=== PATIENT | female | born 1990 | race American Indian/Alaskan Native ===

== ENCOUNTER 2016-07-08 04:03 | Emergency (ER) | payer SELFPAY ==
[2016-07-08 04:10] VITALS: BP 143/83
[2016-07-08] MEDS ORDERED: PEPCID IV ONE (04:22)
[2016-07-08] MEDS ORDERED: BENADRYL IV ONE (04:24)
--- NOTE | 2016-07-08 05:23 | Emergency Department Report ---
HPI - General Chief Complaint: Allergic Reaction Time Seen by Provider: 07/08/16 05:18 - HPI HPI: 26-year-old -[place] Citizen female comes in for complaint of eating [place] food and started to have a rash and itching. Patient reports that she had shrimp fried rice brownie and supreme pizza slice from her mother and within 30 minutes she was itching. Denies any nausea no vomiting no fever or chills. Patient denies any past medical history currently takes no medication and has no known drug allergies. ED Past Medical Hx - Past Medical History Previous Medical History?: No - Surgical History Past Surgical History?: No - Social History Smoking Status: Current Every Day Smoker Substance Use Type: None - Medications Home Medications: Home Medications Medication Instructions Recorded Confirmed Last Taken Type Cetirizine HCl [ZyrTEC] 10 mg PO QDAY #30 capsule 07/08/16 Unknown Rx Famotidine [Pepcid] 20 mg PO BID #20 tablet 07/08/16 Unknown Rx ED Review of Systems ROS: Stated complaint: ALLERGIC REACTION Other details as noted in HPI Constitutional: denies: chills, fever Eyes: denies: eye pain, eye discharge, vision change ENT: denies: ear pain, throat pain Endocrine: no symptoms reported Gastrointestinal: denies: abdominal pain, nausea, diarrhea Musculoskeletal: denies: back pain, joint swelling, arthralgia Skin: pruritus Psychiatric: denies: anxiety, depression Hematological/Lymphatic: denies: easy bleeding, easy bruising Physical Exam - Physical Exam Vital Signs: Vital Signs 07/08/16 04:05 Temperature 98.1 F Pulse Rate 97 H Respiratory 22 Rate Blood Pressure 143/83 O2 Sat by Pulse 99 Oximetry Physical Exam: GENERAL: Alert and oriented x3, no apparent distress, Normal Gait, atraumatic. HEAD: Head is normocephalic and a-traumatic. EYES: Extra ocular muscles are intact. Pupils are equal, round, and reactive to light and accommodation. EARS: symetrical, atraumatic, non tender, ear canal clear and moderate cerumen, tympanic membrance non inflamed. gross auditory nml bilaterally. NOSE: Nose symetrical, Nontender,Nares appeared normal. MOUTH:Mouth is well hydrated and without lesions. Tonsils nonerythematous or swollen, Uvula midline, Tongue not elevated. Mucous membranes are moist. Posterior pharynx clear, no exudate or lesions. Patent airways. NECK: Supple. Non edematous, No carotid bruits. No lymphadenopathy or thyromegaly. LUNGS: Symetrical with respiration, No wheezing, no rales or crackles, CTAB. HEART: S1, S2 present, regular rate and rhythm without murmur, no rubs, no gallops. EXTREMITIES/MUSCULOSKELETAL: No cyanosis, clubbing, rash, lesions or edema. Full ROM bilaterally. UE/LE Pulses 2+ bilaterally. LE and UE 5+ strength bilaterally NEUROLOGIC: No focal Deficit, Cranial nerves II through XII are grossly intact. No loss of sensation, No facial droop, Negative rhomberg. PSYCHIATRIC: Mood is congruent with affect, denies suicidal or homicidal ideations. SKIN: Warm and dry, No lesions, No ulceration or induration present no rashes present ED Course Vital Signs 07/08/16 04:05 Temperature 98.1 F Pulse Rate 97 H Respiratory 22 Rate Blood Pressure 143/83 O2 Sat by Pulse 99 Oximetry ED Medical Decision Making - Medical Decision Making Patient has been evaluated by this provider in fast track. tHis provider gave orders to triage for Pepcid 40 mg IV surgeon Medrol 125 mg and Benadryl 50 mg. Patient reports that she is feeling much better she denies any itchiness no rash no nausea no vomiting. Critical care attestation.: If time is entered above; I have spent that time in minutes in the direct care of this critically ill patient, excluding procedure time. ED Disposition Clinical Impression: Allergic reaction Qualifiers: Encounter type: initial encounter Qualified Code(s): T78.40XA - Allergy, unspecified, initial encounter Disposition: DISCHARGED TO HOME OR SELFCARE Is pt being admited?: No Does the pt Need Aspirin: No Condition: Stable Instructions: Food Allergy (ED) Additional Instructions: Please take medication as prescribed. Follow up with her primary care provider within 3-5 days. Or if symptoms persist or gets worse follow-up with emergency room. Prescriptions: Cetirizine HCl [ZyrTEC] 10 mg PO QDAY #30 capsule Famotidine [Pepcid] 20 mg PO BID #20 tablet Referrals: PRIMARY CARE, [Primary Care Provider] - 3-5 Days Forms: Work/School Release Form(ED), Accompanied Note
== END 2016-07-08 05:41 | disposition home or self-care (01) ==
LOC: ED 04:03
DX: T78.40XA Allergy, unspecified, initial encounter (principal); X58.XXXA Exposure to other specified factors, initial encounter
CPT/HCPCS: 96374; 96375; 99282; J1200; J2930

== ENCOUNTER 2016-07-14 00:14 | Emergency (ER) | payer SELFPAY ==
[2016-07-14] MEDS ORDERED: TYLENOL ONE (00:25)
[2016-07-14] MEDS ORDERED: TYLENOL PO ONE (00:40)
[2016-07-14 01:34] LABS: Basophils % (Auto) 0.4 % (0.0-1.8); Eosinophils % (Auto) 1.9 % (0.0-4.3); Hematocrit 39.2 % (30.3-42.9); Hemoglobin 13.1 gm/dl (10.1-14.3); Mean Corpuscular HGB Conc 33 % (30-34); Mean Corpuscular Hemoglobin 29 pg (28-32); Mean Corpuscular Volume 87 fl (79-97); Platelet Count 374 K/mm3 (140-440); Red Blood Count 4.51 M/mm3 (3.65-5.03); Red Cell Distribution Width 13.3 % (13.2-15.2); White Blood Count 8.5 K/mm3 (4.5-11.0)
[2016-07-14 02:20] LABS: Anion Gap 16 mmol/L; Blood Urea Nitrogen 9 mg/dL (7-17); Calcium 8.9 mg/dL (8.4-10.2); Carbon Dioxide 29 mmol/L (22-30); Chloride 95.8 mmol/L (98-107); Glucose 122 mg/dL (65-100); Potassium 3.4 mmol/L (3.6-5.0); Sodium 137 mmol/L (137-145)
[2016-07-14 03:30] LABS: Bacteria,Urine 1+ /HPF (Negative); Bilirubin,Urine NEG (Negative); Blood,Urine NEG (Negative); Ketones,Urine NEG (Negative); Leukocyte Esterase,Urine SM (Negative); Mucus,Urine 3+ /HPF; Nitrite,Urine NEG (Negative); Urobilinogen,Urine < 2.0 mg/dL (<2.0)
[2016-07-14] MEDS ORDERED: VALIUM PO ONE (03:54)
[2016-07-14] MEDS ORDERED: BACTRIM DS PO ONE (03:54)
--- NOTE | 2016-07-14 04:11 | Emergency Department Report ---
HPI - General Chief Complaint: Skin/Abscess/Foreign Body Time Seen by Provider: 07/14/16 03:12 - HPI HPI: This is a 26-year-old female presents to ED complaining of a ball in the right side of her groin for the past 3 days. Patient states ball is gotten painfully bigger in the past 3 days. Patient states she soaked in warm bath that last night due to the pain. Patient denies any vaginal discharge, dysuria, vaginal bleeding, fever or any other problems. ED Past Medical Hx - Past Medical History Previous Medical History?: Yes Additional medical history: Obesity - Surgical History Past Surgical History?: No - Social History Smoking Status: Current Every Day Smoker Substance Use Type: None - Medications Home Medications: Home Medications Medication Instructions Recorded Confirmed Last Taken Type Cetirizine HCl [ZyrTEC] 10 mg PO QDAY #30 capsule 07/08/16 Unknown Rx Famotidine [Pepcid] 20 mg PO BID #20 tablet 07/08/16 Unknown Rx Ibuprofen [Motrin] 800 mg PO Q8HR PRN #30 tablet 07/14/16 Unknown Rx Sulfamethoxazole/Trimethoprim 1 each PO ONCE #12 tablet 07/14/16 Unknown Rx [Bactrim DS TAB] ED Review of Systems ROS: Stated complaint: VAGINAL RISING Other details as noted in HPI Constitutional: denies: chills, fever Eyes: denies: eye pain, eye discharge, vision change ENT: denies: ear pain, throat pain Respiratory: denies: cough, shortness of breath, wheezing Cardiovascular: denies: chest pain, palpitations Endocrine: no symptoms reported Gastrointestinal: denies: abdominal pain, nausea, diarrhea Genitourinary: denies: urgency, dysuria, discharge Musculoskeletal: denies: back pain, joint swelling, arthralgia Skin: denies: rash, lesions Neurological: denies: headache, weakness, paresthesias Psychiatric: denies: anxiety, depression Hematological/Lymphatic: denies: easy bleeding, easy bruising Physical Exam - Physical Exam Vital Signs: Vital Signs 07/14/16 00:18 Temperature 98.9 F Pulse Rate 118 H Respiratory 20 Rate Blood Pressure 137/91 [Right] O2 Sat by Pulse 100 Oximetry Physical Exam: GENERAL: Alert and oriented x3, no apparent distress, Normal Gait, atraumatic. HEAD: Head is normocephalic and a-traumatic. LUNGS: Symetrical with respiration, No wheezing, no rales or crackles, CTAB. HEART: S1, S2 present, regular rate and rhythm without murmur, no rubs, no gallops. GENITOURINARY: External genitalia without erythema, exudate or discharge. Right mons pubis tenderness to palpation. Further 5 cm abscess on the right mon pubis, active drainage. Severely tender to palpation. Copious pussy discharge expelling from the abscess SKIN: Warm and dry, No lesions, No ulceration or induration present. ED Course Vital Signs 07/14/16 00:18 Temperature 98.9 F Pulse Rate 118 H Respiratory 20 Rate Blood Pressure 137/91 [Right] O2 Sat by Pulse 100 Oximetry ED Medical Decision Making - Lab Data Result diagrams: 07/14/16 00:43 07/14/16 00:43 - Medical Decision Making 26-year-old female presents with abscess. ED course: Patient received 5 mg of Valium and Bactrim DS. Warm compresses applied to the abscess Patient positioned appropriately, 15cc lidocaine with/without epinephrine was used as a local anesthetic. Additional local anesthetic injected into surrounding viable tissue prior to blunt dissection of loculated adhesions. Copius drainage of pus. Procedure tolerated without complications. Wound dressed with sterile 4x4 guaze and paper tape. Patient is sent home on a week of antibiotics and some pain medication. Discussed the patient to follow up with primary care physician. Vital signs are normal patient is in no acute distress She is alert and oriented 3. Complex follow-up with instructions. Discussed the patient to follow up with primary care physician in 3-5 days for wound check Critical care attestation.: If time is entered above; I have spent that time in minutes in the direct care of this critically ill patient, excluding procedure time. ED Disposition Clinical Impression: Abscess of right groin Disposition: DISCHARGED TO HOME OR SELFCARE Is pt being admited?: No Does the pt Need Aspirin: No Condition: Stable Instructions: Abscess Incision and Drainage (ED), Abscess (ED) Prescriptions: Ibuprofen [Motrin] 800 mg PO Q8HR PRN #30 tablet PRN Reason: Pain Sulfamethoxazole/Trimethoprim [Bactrim DS TAB] 1 each PO ONCE #12 tablet Referrals: PRIMARY CARE, [Primary Care Provider] - 3-5 Days [facility] [Outside] - 3-5 Days [facility] [Outside] - 3-5 Days Forms: Accompanied Note, Work/School Release Form(ED) Time of Disposition: 04:25
[2016-07-14 05:33] VITALS: BP 122/75
== END 2016-07-14 05:34 | disposition home or self-care (01) ==
LOC: ED 00:14
DX: L02.214 Cutaneous abscess of groin (principal); E66.9 Obesity, unspecified; F17.200 Nicotine dependence, unspecified, uncomplicated
CPT/HCPCS: 36415; 80048; 81001; 84703; 85025; 99283

== ENCOUNTER 2019-05-26 06:09 | Emergency (ER) | payer SELFPAY ==
[2019-05-26 06:23] VITALS: BP 147/98
[2019-05-26 07:09] LABS: Bilirubin,Urine Negative (Negative); Color,Urine Yellow (Yellow)
[2019-05-26 07:10] LABS: Blood,Urine Negative (Negative); Protein,Urine <15 mg/dL mg/dL (Negative)
[2019-05-26 07:11] LABS: Amorphous Crystals,Urine Few; HCG Qualitative,Urine Negative (Negative)
[2019-05-26 08:40] LABS: Basophils % (Auto) 0.4 % (0.0-1.8); Eosinophils # (Auto) 0.1 K/mm3 (0.0-0.4); Eosinophils % (Auto) 0.9 % (0.0-4.3); Hematocrit 40.9 % (30.3-42.9); Hemoglobin 13.6 gm/dl (10.1-14.3); Lymphocytes # (Auto) 1.8 K/mm3 (1.2-5.4); Lymphocytes % (Auto) 17.4 % (13.4-35.0); Mean Corpuscular HGB Conc 33 % (30-34); Mean Corpuscular Volume 89 fl (79-97); Monocytes # (Auto) 0.7 K/mm3 (0.0-0.8); Monocytes % (Auto) 6.6 % (0.0-7.3); Platelet Count 415 K/mm3 (140-440); Red Blood Count 4.59 M/mm3 (3.65-5.03); Red Cell Distribution Width 13.3 % (13.2-15.2)
[2019-05-26] MEDS ORDERED: MORPHINE 4 MG/1 ML INJ IV ONE (09:01)
[2019-05-26] MEDS ORDERED: SODIUM CHLORIDE 0.9% 1000 ML 1,000 ML IV ONE (09:01)
[2019-05-26] MEDS ORDERED: ONDANSETRON 4 MG/2 ML INJ IV ONE (09:01)
[2019-05-26 09:15] LABS: Mucus,Urine 1+ /HPF
--- NOTE | 2019-05-26 09:52 | Emergency Department Report ---
ED Abdominal Pain HPI - General Chief Complaint: Abdominal Pain Stated Complaint: ABDOMINAL PAIN Time Seen by Provider: 05/26/19 08:36 Source: patient, family Mode of arrival: Ambulatory Limitations: No Limitations, Language Barrier - History of Present Illness Initial Comments: This is a 29-year-old female nontoxic, well nourished in appearance, no acute signs of distress presents to the ED with c/o of nausea and vomiting and abdominal pain 2 days. Patient describes vomiting as food content and yellow gastric acid. Patient describes abdominal pain as cramping and aching with level of 8/10 diffuse. Patient denies chest pain, short of breath, fever, hemoptysis, blood in stool, chills, headache, stiff neck, numbness or tingling. Patient denies any diarrhea or constipation. Denies any blood in stool. Patient denies any recent travels. Patient stated allergies to shrimp but denies any contrast dye allergies. MD Complaint: abdominal pain -: days(s) (2) Location: diffuse Radiation: none Severity: mild Severity scale (0 -10): 8 Quality: cramping, aching Consistency: constant Improves With: nothing Worsens With: nothing Associated Symptoms: nausea, vomiting. denies: diarrhea, fever, chills, constipation, dysuria, hematemesis, hematochezia, melena, hematuria, anorexia, syncope - Related Data Previous Rx's Medication Instructions Recorded Last Taken Type Cetirizine HCl [ZyrTEC] 10 mg PO QDAY #30 capsule 07/08/16 Unknown Rx Famotidine [Pepcid] 20 mg PO BID #20 tablet 07/08/16 Unknown Rx Ibuprofen [Motrin] 800 mg PO Q8HR PRN #30 tablet 07/14/16 Unknown Rx Sulfamethoxazole/Trimethoprim 1 each PO ONCE #12 tablet 07/14/16 Unknown Rx [Bactrim DS TAB] Ondansetron [Zofran Odt] 4 mg PO Q8HR PRN #20 tab.rapdis 05/26/19 Unknown Rx Allergies Allergy/AdvReac Type Severity Reaction Status Date / Time shrimp Allergy Hives Verified 07/14/16 00:21 ED Review of Systems ROS: Stated complaint: ABDOMINAL PAIN Other details as noted in HPI Constitutional: denies: chills, fever Eyes: denies: eye pain, eye discharge, vision change ENT: denies: ear pain, throat pain Respiratory: denies: cough, shortness of breath, wheezing Cardiovascular: denies: chest pain, palpitations Endocrine: no symptoms reported Gastrointestinal: abdominal pain, nausea, vomiting. denies: diarrhea, constipation, hematemesis, melena, hematochezia Genitourinary: denies: urgency, dysuria, discharge Musculoskeletal: denies: back pain, joint swelling, arthralgia Skin: denies: rash, lesions Neurological: denies: headache, weakness, paresthesias Psychiatric: denies: anxiety, depression Hematological/Lymphatic: denies: easy bleeding, easy bruising ED Past Medical Hx - Past Medical History Previous Medical History?: Yes Additional medical history: Obesity - Surgical History Past Surgical History?: No - Social History Smoking Status: Current Every Day Smoker Substance Use Type: Alcohol, Marijuana - Medications Home Medications: Home Medications Medication Instructions Recorded Confirmed Last Taken Type Cetirizine HCl [ZyrTEC] 10 mg PO QDAY #30 capsule 07/08/16 Unknown Rx Famotidine [Pepcid] 20 mg PO BID #20 tablet 07/08/16 Unknown Rx Ibuprofen [Motrin] 800 mg PO Q8HR PRN #30 tablet 07/14/16 Unknown Rx Sulfamethoxazole/Trimethoprim 1 each PO ONCE #12 tablet 07/14/16 Unknown Rx [Bactrim DS TAB] Ondansetron [Zofran Odt] 4 mg PO Q8HR PRN #20 tab.rapdis 05/26/19 Unknown Rx ED Physical Exam - General Limitations: No Limitations, Language Barrier General appearance: alert, in no apparent distress - Head Head exam: Present: atraumatic, normocephalic - Eye Eye exam: Present: normal appearance - Neck Neck exam: Present: normal inspection, full ROM. Absent: tenderness, meningismus, lymphadenopathy - Respiratory Respiratory exam: Present: normal lung sounds bilaterally. Absent: respiratory distress, wheezes, rales, rhonchi, stridor, chest wall tenderness, accessory muscle use, decreased breath sounds, prolonged expiratory - Cardiovascular Cardiovascular Exam: Present: regular rate, normal rhythm, normal heart sounds. Absent: bradycardia, tachycardia, irregular rhythm, systolic murmur, diastolic murmur, rubs, gallop - GI/Abdominal GI/Abdominal exam: Present: soft, tenderness (diffuse), normal bowel sounds. Absent: distended, guarding, rebound, rigid, diminished bowel sounds - Extremities Exam Extremities exam: Present: normal inspection, full ROM, normal capillary refill. Absent: tenderness - Back Exam Back exam: Present: normal inspection, full ROM. Absent: tenderness, CVA tenderness (R), CVA tenderness (L), muscle spasm, paraspinal tenderness, vertebral tenderness, rash noted - Neurological Exam Neurological exam: Present: alert, oriented X3, normal gait - Psychiatric Psychiatric exam: Present: normal affect, normal mood - Skin Skin exam: Present: warm, dry, intact, normal color. Absent: rash ED Course Vital Signs 05/26/19 05/26/19 05/26/19 06:20 09:23 09:35 Temperature 98.3 F Pulse Rate 76 Respiratory 18 18 18 Rate Blood Pressure 147/98 O2 Sat by Pulse 98 940 H Oximetry 05/26/19 09:53 Temperature Pulse Rate Respiratory 18 Rate Blood Pressure O2 Sat by Pulse Oximetry - Reevaluation(s) Reevaluation #1: 05/26/19 09:53 Patient is speaking in full sentences with no signs of distress noted. ED Medical Decision Making - Lab Data Result diagrams: 05/26/19 08:00 05/26/19 08:00 - Medical Decision Making This is a 29-year-old female that presents with abdominal pain. Patient is stable and was examined by me. There is no abdominal tenderness. Negative signs of symptoms of appendicitis. Labs obtained. UA obtained. CT of abdomen obtained and dictated by the radiologist. Patient is notified of the report with no questions noted by the patient. Vital signs are stable prior to discharge. Patient received medical treatment in the ED which patient stated symptoms has resovled and subsided. Was instructed note to operate any machinery due to possible drowsiness and stated someone will drive the patient home. A by mouth challenge has been obtained and patient tolerated well with no nausea vomiting. Patient was notified of strict precatuions of appendictis symptoms and to return to the ED if symptoms occurs as soon as possible. Patient was also instructed to Follow-up with a primary care doctor in 3-5 days or if symptoms worsen and continue return to emergency room as soon as possible. At time of discharge, the patient does not seem toxic or ill in appearance. No acute signs of distress noted. Patient agrees to discharge treatment plan of care. No further questions noted by the patient. Critical care attestation.: If time is entered above; I have spent that time in minutes in the direct care of this critically ill patient, excluding procedure time. ED Disposition Clinical Impression: Nausea & vomiting Qualifiers: Vomiting type: unspecified Vomiting Intractability: non-intractable Qualified Code(s): R11.2 - Nausea with vomiting, unspecified Abdominal pain Qualifiers: Abdominal location: generalized Qualified Code(s): R10.84 - Generalized abdominal pain Disposition: TO HOME OR SELFCARE Is pt being admited?: No Does the pt Need Aspirin: No Condition: Stable Instructions: Abdominal Pain (ED), Acute Nausea and Vomiting (ED) Additional Instructions: Follow-up with a primary care doctor in 3-5 days or if symptoms worsen and continue return to emergency room as soon as possible. Prescriptions: Ondansetron [Zofran Odt] 4 mg PO Q8HR PRN #20 tab.rapdis PRN Reason: Nausea Referrals: PRIMARY MD BRADLEY [Primary Care Provider] - 3-5 Days ROSA CASH MD [Staff Physician] - 3-5 Days [facility] [Provider Group] - 3-5 Days Forms: Work/School Release Form(ED)
[2019-05-26 11:11] LABS: Alanine Aminotransferase 11 units/L (7-56); Albumin 4.4 g/dL (3.9-5); BUN/Creatinine Ratio 20; Blood Urea Nitrogen 12 mg/dL (7-17); Calcium 8.9 mg/dL (8.4-10.2); Hemolysis Index 9
--- NOTE | 2019-05-26 12:44 | Cat Scan Report ---
CT ABDOMEN AND PELVIS WITH CONTRAST INDICATION / CLINICAL INFORMATION: abd pain n/v. TECHNIQUE: Axial CT images were obtained through the abdomen and pelvis after 100 mL Omnipaque [address] scans at this location are performed using CT dose reduction for ALARA by means of automated exposure control. COMPARISON: None available. FINDINGS: LOWER CHEST: No significant abnormality. LIVER: No significant abnormality. BILIARY SYSTEM: No significant abnormality. PANCREAS: No significant abnormality. SPLEEN: No significant abnormality. ADRENALS: No significant abnormality. KIDNEYS and URETERS: No significant abnormality. STOMACH / BOWEL: The small and large bowel are fluid-filled and demonstrate mild mucosal hyperenhance ment. There is no evidence of obstruction or significant perienteric inflammation. The appendix is no rmal. PERITONEUM: No free fluid. No free air. No fluid collection. LYMPH NODES: No significant adenopathy. VASCULAR STRUCTURES: No significant abnormality. URINARY BLADDER: No significant abnormality. REPRODUCTIVE ORGANS: No significant abnormality. A left corpus luteum is noted. ADDITIONAL FINDINGS: None. SKELETAL SYSTEM: No significant abnormality. IMPRESSION: 1. The small and large bowel are fluid-filled and demonstrate mild mucosal hyperenhancement, nonspeci fic but suggestive of infectious or inflammatory enteritis. There is no evidence of obstruction or si gnificant perienteric inflammation. Signer Name: Anna Rodríguez MD Signed: 05/26/2019 12:39 PM Workstation Name: [email or web address]
== END 2019-05-26 14:14 | disposition home or self-care (01) ==
LOC: ED 06:09
DX: R11.2 Nausea with vomiting, unspecified (principal); R10.84 Generalized abdominal pain; F17.200 Nicotine dependence, unspecified, uncomplicated; F12.10 Cannabis abuse, uncomplicated; Z79.899 Other long term (current) drug therapy; Z88.8 Allergy status to other drugs, medicaments and biological substances
CPT/HCPCS: 36415; 74177; 80053; 81001; 81025; 83690; 85025; 96361; 96374; 96375; 99284; J2270; J2405; J7030; Q9967

== ENCOUNTER 2020-02-16 16:21 | Emergency (ER) | payer SELFPAY ==
[2020-02-16 16:26] VITALS: BP 138/84
--- NOTE | 2020-02-16 16:29 | Emergency Department Report ---
Blank Doc - Documentation Documentation: 30-year-old female that presents with right axilla abscess. This initial assessment/diagnostic orders/clinical plan/treatment(s) is/are subject to change based on patient's health status, clinical progression and re- assessment by fellow clinical providers in the ED. Further treatment and workup at subsequent clinical providers discretion. Patient/guardians urged not to elope from the ED as their condition may be serious if not clinically assessed and managed. Initial orders include: 1- Patient sent to [facility] for further evaluation and treatment
--- NOTE | 2020-02-16 16:59 | Emergency Department Report ---
Abscess Boil HPI - HPI Chief Complaint: Skin/Abscess/Foreign Body Stated Complaint: BOIL Time Seen by Provider: 02/16/20 16:24 History: Yes Pain, No Fever, No Purulent Drainage, No Numbness, No Foreign Body, No Previous History, No Insect Bite HPI: 30 y/o female comes in for a boil under her right axilla and right inner thigh times a few days. Patient reports having a history of these. She denies any fever or chills no drainage jusr pain. Home Medications: Previous Rx's Medication Instructions Recorded Last Taken Type Cetirizine HCl [ZyrTEC] 10 mg PO QDAY #30 capsule 07/08/16 Unknown Rx Famotidine [Pepcid] 20 mg PO BID #20 tablet 07/08/16 Unknown Rx Ondansetron [Zofran Odt] 4 mg PO Q8HR PRN #20 tab.rapdis 05/26/19 Unknown Rx Chlorhexidine Gluconate 1 applic TP QDAY PRN #237 ml 02/16/20 Unknown Rx [Antiseptic Skin Cleanser] Ibuprofen [Motrin 800 MG tab] 800 mg PO Q8HR PRN #30 tablet 02/16/20 Unknown Rx Sulfamethoxazole/Trimethoprim 1 each PO ONCE 10 Days #20 tablet 02/16/20 Unknown Rx [Bactrim DS TAB] Allergies/Adverse Reactions: Allergies Allergy/AdvReac Type Severity Reaction Status Date / Time shrimp Allergy Hives Verified 07/14/16 00:21 ED Review of Systems ROS: Stated complaint: BOIL Other details as noted in HPI Comment: All other systems reviewed and negative ED Past Medical Hx - Past Medical History Previous Medical History?: No Additional medical history: Obesity - Surgical History Past Surgical History?: No - Social History Smoking Status: Current Every Day Smoker Substance Use Type: Alcohol, Marijuana - Medications Home Medications: Home Medications Medication Instructions Recorded Confirmed Last Taken Type Cetirizine HCl [ZyrTEC] 10 mg PO QDAY #30 capsule 07/08/16 Unknown Rx Famotidine [Pepcid] 20 mg PO BID #20 tablet 07/08/16 Unknown Rx Ondansetron [Zofran Odt] 4 mg PO Q8HR PRN #20 tab.rapdis 05/26/19 Unknown Rx Chlorhexidine Gluconate 1 applic TP QDAY PRN #237 ml 02/16/20 Unknown Rx [Antiseptic Skin Cleanser] Ibuprofen [Motrin 800 MG tab] 800 mg PO Q8HR PRN #30 tablet 02/16/20 Unknown Rx Sulfamethoxazole/Trimethoprim 1 each PO ONCE 10 Days #20 tablet 02/16/20 Unknown Rx [Bactrim DS TAB] ED Abscess Boil Physical Exam - Exam General: Vital signs noted. No distress. Alert and acting appropriately. Size: 3 cm Exam: Yes Tenderness, Yes Fluctuance, Yes Surrounding Cellulites/Erythema, Yes Normal Neurologic Exam, Yes Normal Circulation, No Lymphangitis, No Crepitation ED Course Vital Signs 02/16/20 16:25 Temperature 98.0 F Pulse Rate 78 Respiratory 16 Rate Blood Pressure 138/84 [Right] O2 Sat by Pulse 98 Oximetry Critical care attestation.: If time is entered above; I have spent that time in minutes in the direct care of this critically ill patient, excluding procedure time. ED Medical Decision Making - Medical Decision Making 30 y/o female comes in for a boil under her right axilla and right inner thigh times a few days. Patient reports having a history of these. She denies any fever or chills no drainage jusr pain. Patient with be placed on Bactrim DS, recommend Chlorhexidine Gluconate and Ibuprofen. Referral to Radio Station Audio Engineer. ED Disposition Clinical Impression: Abscess of axilla, right, Boil, thigh Disposition: -01 TO HOME OR SELFCARE Is pt being admited?: No Does the pt Need Aspirin: No Condition: Stable Instructions: Skin Abscess, [id number] Additional Instructions: Complete antibiotics as prescribed and use wash as directed. Follow up with a Radio Station Audio Engineer. Prescriptions: Chlorhexidine Gluconate [Antiseptic Skin Cleanser] 1 applic TP QDAY PRN #237 ml PRN Reason: Rash Sulfamethoxazole/Trimethoprim [Bactrim DS TAB] 1 each PO ONCE 10 Days #20 tablet Ibuprofen [Motrin 800 MG tab] 800 mg PO Q8HR PRN #30 tablet PRN Reason: Pain Referrals: PRIMARY CAREMD [Primary Care Provider] - 3-5 Days [facility] [Provider Group] - 3-5 Days STEVE WYLIE MD [Referring] - 3-5 Days Forms: Work/School Release Form(ED)
== END 2020-02-16 17:31 | disposition home or self-care (01) ==
LOC: ED 16:21
DX: L02.411 Cutaneous abscess of right axilla (principal); L02.429 Furuncle of limb, unspecified; E66.9 Obesity, unspecified; F17.200 Nicotine dependence, unspecified, uncomplicated; F12.90 Cannabis use, unspecified, uncomplicated; Z91.013 Allergy to seafood; Z68.35 Body mass index [BMI] 35.0-35.9, adult; Z79.899 Other long term (current) drug therapy
CPT/HCPCS: 99282

== ENCOUNTER 2020-02-27 17:01 | Emergency (ER) | payer SELFPAY | END 2020-02-27 18:12 | disposition left against medical advice (07) | LOC: ED 17:01 | DX: Z53.21 Procedure and treatment not carried out due to patient leaving prior to being seen by health care provider (principal) ==

== ENCOUNTER 2020-07-20 08:04 | Emergency (ER) | payer SELFPAY ==
[2020-07-20 08:22] VITALS: BP 132/92
== END 2020-07-20 09:40 | disposition home or self-care (01) ==
LOC: ED 08:04
DX: L73.2 Hidradenitis suppurativa (principal); F17.200 Nicotine dependence, unspecified, uncomplicated; F12.90 Cannabis use, unspecified, uncomplicated; Z72.89 Other problems related to lifestyle; Z79.899 Other long term (current) drug therapy; Z91.013 Allergy to seafood
CPT/HCPCS: 93005; 96372; 99282; J1885

== ENCOUNTER 2021-05-04 13:39 | Emergency (ER) | payer SELFPAY ==
[2021-05-04] MEDS ORDERED: DEXAMETHASONE 4 MG TAB PO ONE (17:29)
[2021-05-04] MEDS ORDERED: KETOROLAC 10 MG TAB PO ONE (17:29)
--- NOTE | 2021-05-04 18:19 | XRay Report ---
XR chest routine 2V INDICATION / CLINICAL INFORMATION: chest pain. COMPARISON: None available. FINDINGS: SUPPORT DEVICES: None. HEART /PULMONARY VASCULATURE: No significant abnormality. LUNGS / PLEURA: No significant pulmonary or pleural abnormality. No pneumothorax. ADDITIONAL FINDINGS: No significant additional findings. IMPRESSION: 1. No acute findings. Signer Name: Ho Sims MD Signed: 05/04/2021 6:15 PM Workstation Name: [id number]
--- NOTE | 2021-05-04 18:41 | Emergency Department Report ---
ED General Adult HPI - General Chief complaint: Pain General Stated complaint: DIFFICULYT BREATHING Time Seen by Provider: 05/04/21 17:17 Source: patient Mode of arrival: Ambulatory Limitations: No Limitations - History of Present Illness Initial comments: 31-year-old black female with no past medical history presents to the emergency department for evaluation of lung pain. She states that for the last week she has had what felt like pain in the bottom of her bilateral lungs that is worse with inspiration. She states that she takes ibuprofen and has some improvement but in a few hours it comes back. Denies any injury, trauma, fever, cough, congestion, dysuria, abdominal pain. -: Gradual, week(s) (1) Location: back (Bilateral lung areas) Radiation: non-radiation Severity scale (0 -10): 10 Quality: aching, sharp Consistency: intermittent Improves with: medication (Ibuprofen) Worsens with: other (Inspiration) Associated Symptoms: denies: chest pain, cough, diaphoresis, fever/chills, headaches, loss of appetite, malaise, nausea/vomiting, rash, seizure, shortness of breath, syncope, weakness Treatments Prior to Arrival: NSAID - Related Data Previous Rx's Medication Instructions Recorded Last Taken Type Chlorhexidine Gluconate 1 applic TP QDAY PRN #237 ml 07/20/20 Unknown Rx [Antiseptic Skin Cleanser] Ibuprofen [Motrin 800 MG tab] 800 mg PO Q8HR PRN #30 tablet 07/20/20 Unknown Rx cephALEXin [Keflex] 500 mg PO Q12HR #20 cap 07/20/20 Unknown Rx Naproxen [Naprosyn] 500 mg PO BID #14 tab 05/04/21 Unknown Rx methylPREDNISolone [Medrol 4MG 4 mg PO DAILY #1 pack 05/04/21 Unknown Rx DOSEPAK (21 tabs)] Allergies Allergy/AdvReac Type Severity Reaction Status Date / Time shrimp Allergy Hives Verified 07/14/16 00:21 ED Review of Systems ROS: Stated complaint: DIFFICULYT BREATHING Other details as noted in HPI Comment: All other systems reviewed and negative Constitutional: denies: chills, fever ENT: denies: throat pain, congestion Respiratory: denies: cough, shortness of breath, SOB with exertion, SOB at rest Cardiovascular: denies: chest pain, palpitations, dyspnea on exertion, edema, syncope, paroxysmal nocturnal dyspnea Gastrointestinal: denies: abdominal pain, nausea, vomiting Genitourinary: denies: urgency, dysuria, frequency, hematuria, discharge Musculoskeletal: back pain (Bilateral lung areas) Neurological: denies: headache, weakness, numbness, paresthesias ED Past Medical Hx - Past Medical History Previous Medical History?: Yes Additional medical history: Obesity-hydradenitis - Surgical History Past Surgical History?: No - Social History Smoking Status: Current Every Day Smoker Substance Use Type: Alcohol, Marijuana - Medications Home Medications: Home Medications Medication Instructions Recorded Confirmed Last Taken Type Chlorhexidine Gluconate 1 applic TP QDAY PRN #237 ml 07/20/20 Unknown Rx [Antiseptic Skin Cleanser] Ibuprofen [Motrin 800 MG tab] 800 mg PO Q8HR PRN #30 tablet 07/20/20 Unknown Rx cephALEXin [Keflex] 500 mg PO Q12HR #20 cap 07/20/20 Unknown Rx Naproxen [Naprosyn] 500 mg PO BID #14 tab 05/04/21 Unknown Rx methylPREDNISolone [Medrol 4MG 4 mg PO DAILY #1 pack 05/04/21 Unknown Rx DOSEPAK (21 tabs)] ED Physical Exam - General Limitations: No Limitations General appearance: alert, in no apparent distress - Head Head exam: Present: atraumatic, normocephalic - Eye Eye exam: Present: normal appearance. Absent: conjunctival injection - Neck Neck exam: Present: normal inspection, full ROM. Absent: tenderness - Respiratory Respiratory exam: Present: normal lung sounds bilaterally. Absent: respiratory distress, wheezes, rales, rhonchi, stridor, chest wall tenderness, accessory muscle use - Cardiovascular Cardiovascular Exam: Present: regular rate, normal heart sounds - GI/Abdominal GI/Abdominal exam: Present: soft, rigid, normal bowel sounds. Absent: distended, tenderness, guarding, rebound - Extremities Exam Extremities exam: Present: normal inspection - Back Exam Back exam: Present: normal inspection, tenderness (Bilateral lower that is worse with inspiration). Absent: CVA tenderness (R), CVA tenderness (L), paraspinal tenderness, vertebral tenderness - Neurological Exam Neurological exam: Present: alert, oriented X3, CN II-XII intact, normal gait, reflexes normal. Absent: motor sensory deficit - Psychiatric Psychiatric exam: Present: normal affect, normal mood - Skin Skin exam: Present: warm, dry, intact, normal color ED Course Vital Signs 05/04/21 05/04/21 14:20 19:06 Temperature 98.4 F Pulse Rate 87 80 Respiratory 16 16 Rate Blood Pressure 128/88 Blood Pressure 122/82 [Right] O2 Sat by Pulse 100 99 Oximetry - Reevaluation(s) Reevaluation #1: 05/04/21 18:41 Pain mostly resolved after medication. ED Medical Decision Making - Radiology Data Radiology results: report reviewed, image reviewed Chest x-ray: IMPRESSION: 1. No acute findings. - Medical Decision Making 31-year-old black female with no past medical history presents to the emergency department for evaluation of lung pain. She states that for the last week she has had what felt like pain in the bottom of her bilateral lungs that is worse with inspiration. She states that she takes ibuprofen and has some improvement but in a few hours it comes back. Denies any injury, trauma, fever, cough, congestion, dysuria, abdominal pain. Chest x-ray without any acute abnormalities noted. Symptoms and exam most consistent with pleurisy given that patient denies shortness of breath and fever. She will be treated with 7-day course of anti-inflammatories along with 6-day course of steroids. She is advised to take medications as prescribed and follow-up with primary care provider if no improvement or worsening symptoms. She verbalized understanding of and agreement with plan of care. Critical care attestation.: If time is entered above; I have spent that time in minutes in the direct care of this critically ill patient, excluding procedure time. ED Disposition Clinical Impression: Pleuritic pain Disposition: 01 HOME / SELF CARE / HOMELESS Is pt being admited?: No Does the pt Need Aspirin: No Condition: Stable Instructions: Pleurisy, [id number] Additional Instructions: Take medications as prescribed. Follow-up with primary care provider if no improvement or worsening symptoms. Prescriptions: methylPREDNISolone [Medrol 4MG DOSEPAK (21 tabs)] 4 mg PO DAILY #1 pack Naproxen [Naprosyn] 500 mg PO BID #14 tab Referrals: ROSA CASH MD [Primary Care Provider] - 3-5 Days Time of Disposition: 18:47
[2021-05-04 19:06] VITALS: BP 122/82
== END 2021-05-04 19:07 | disposition home or self-care (01) ==
LOC: ED 13:39
DX: R07.81 Pleurodynia (principal); Z91.013 Allergy to seafood; F17.200 Nicotine dependence, unspecified, uncomplicated; F12.90 Cannabis use, unspecified, uncomplicated; F10.20 Alcohol dependence, uncomplicated
CPT/HCPCS: 71046; 99283; J8540

== ENCOUNTER 2021-06-28 13:03 | Emergency (ER) | payer SELFPAY ==
[2021-06-28] MEDS ORDERED: DOXYCYCLINE 100 MG CAP PO ONE (18:23)
[2021-06-28] MEDS ORDERED: oxyCODONE /ACETAMINOPHEN 5-325MG TAB PO ONE (18:23)
--- NOTE | 2021-06-28 20:44 | Emergency Department Report ---
ED General Adult HPI - General Chief complaint: Weakness Stated complaint: HIDRANITIS/MUSCLE MOVEMENT Time Seen by Provider: 06/28/21 18:08 Source: patient Mode of arrival: Ambulatory Limitations: No Limitations - History of Present Illness Severity scale (0 -10): 9 - Related Data Previous Rx's Medication Instructions Recorded Last Taken Type Chlorhexidine Gluconate 1 applic TP QDAY PRN #237 ml 07/20/20 Unknown Rx [Antiseptic Skin Cleanser] Ibuprofen [Motrin 800 MG tab] 800 mg PO Q8HR PRN #30 tablet 07/20/20 Unknown Rx cephALEXin [Keflex] 500 mg PO Q12HR #20 cap 07/20/20 Unknown Rx Naproxen [Naprosyn] 500 mg PO BID #14 tab 05/04/21 Unknown Rx methylPREDNISolone [Medrol 4MG 4 mg PO DAILY #1 pack 05/04/21 Unknown Rx DOSEPAK (21 tabs)] Acetaminophen/Codeine [Tylenol 1 tab PO Q6H PRN 3 Days #12 tab 06/28/21 Unknown Rx /Codeine # 3 tab] DOXYCYCLINE Hyclate [Vibramycin 100 mg PO Q12HR 10 Days #20 capsule 06/28/21 Unknown Rx CAP] Ibuprofen [Motrin] 800 mg PO Q8HR PRN 7 Days #21 06/28/21 Unknown Rx tablet Allergies Allergy/AdvReac Type Severity Reaction Status Date / Time shrimp Allergy Hives Verified 07/14/16 00:21 ED Review of Systems ROS: Stated complaint: HIDRANITIS/MUSCLE MOVEMENT Other details as noted in HPI ED Past Medical Hx - Past Medical History Previous Medical History?: Yes Additional medical history: Obesity-hydradenitis - Social History Smoking Status: Current Every Day Smoker Substance Use Type: Alcohol, Marijuana - Medications Home Medications: Home Medications Medication Instructions Recorded Confirmed Last Taken Type Chlorhexidine Gluconate 1 applic TP QDAY PRN #237 ml 07/20/20 Unknown Rx [Antiseptic Skin Cleanser] Ibuprofen [Motrin 800 MG tab] 800 mg PO Q8HR PRN #30 tablet 07/20/20 Unknown Rx cephALEXin [Keflex] 500 mg PO Q12HR #20 cap 07/20/20 Unknown Rx Naproxen [Naprosyn] 500 mg PO BID #14 tab 05/04/21 Unknown Rx methylPREDNISolone [Medrol 4MG 4 mg PO DAILY #1 pack 05/04/21 Unknown Rx DOSEPAK (21 tabs)] Acetaminophen/Codeine [Tylenol 1 tab PO Q6H PRN 3 Days #12 tab 06/28/21 Unknown Rx /Codeine # 3 tab] DOXYCYCLINE Hyclate [Vibramycin 100 mg PO Q12HR 10 Days #20 capsule 06/28/21 Unknown Rx CAP] Ibuprofen [Motrin] 800 mg PO Q8HR PRN 7 Days #21 06/28/21 Unknown Rx tablet ED Physical Exam - General Limitations: No Limitations ED Course Vital Signs 06/28/21 17:18 Temperature 98.4 F Pulse Rate 106 H Respiratory 18 Rate Blood Pressure 151/110 O2 Sat by Pulse 99 Oximetry Critical care attestation.: If time is entered above; I have spent that time in minutes in the direct care of this critically ill patient, excluding procedure time. ED Disposition Clinical Impression: Hidradenitis suppurativa of right axilla Disposition: HOME / SELF CARE / HOMELESS Is pt being admited?: No Condition: Stable Instructions: Hidradenitis Suppurativa Prescriptions: Ibuprofen [Motrin] 800 mg PO Q8HR PRN 7 Days #21 tablet PRN Reason: Pain, Moderate (4-6) Acetaminophen/Codeine [Tylenol /Codeine # 3 tab] 1 tab PO Q6H PRN 3 Days #12 tab PRN Reason: Pain , Severe (7-10) DOXYCYCLINE Hyclate [Vibramycin CAP] 100 mg PO Q12HR 10 Days #20 capsule Referrals: [facility] [Outside] - 3-5 Days Time of Disposition: 20:43 Print Language: GAMBIAN
[2021-06-28 21:26] VITALS: BP 146/102
== END 2021-06-28 21:26 | disposition home or self-care (01) ==
LOC: ED 13:03
DX: L73.2 Hidradenitis suppurativa (principal); F17.200 Nicotine dependence, unspecified, uncomplicated; F12.90 Cannabis use, unspecified, uncomplicated; Z72.89 Other problems related to lifestyle; Z91.013 Allergy to seafood; Z79.899 Other long term (current) drug therapy
CPT/HCPCS: 99282

== ENCOUNTER 2021-09-10 23:28 | Emergency (ER) | payer SELFPAY ==
[2021-09-11] MEDS ORDERED: ONDANSETRON 4 MG/2 ML INJ IV ONE (00:26)
[2021-09-11] MEDS ORDERED: KETOROLAC 30 MG/1 ML INJ IV ONE (00:26)
--- NOTE | 2021-09-11 00:35 | Emergency Department Report ---
ED Neck Pain/Injury HPI - General Chief Complaint: Neck Pain/Injury Stated Complaint: NECK PAIN Time Seen by Provider: 09/11/21 00:26 Mode of arrival: Stretcher Limitations: No Limitations - History of Present Illness Initial Comments: 31 yo F who present with right neck pain associated with chills and sore throat that is been going on for the last 30 days progressively getting worsen. Pt also reports difficulty swallowing due to the neck pain. She has been told in the recent past that she has a borderline thyroid problem. No fall or trauma to the neck reported. No fever reported and not other modifying or associated factors. - Related Data Previous Rx's Medication Instructions Recorded Last Taken Type Chlorhexidine Gluconate 1 applic TP QDAY PRN #237 ml 07/20/20 Unknown Rx [Antiseptic Skin Cleanser] Ibuprofen [Motrin 800 MG tab] 800 mg PO Q8HR PRN #30 tablet 07/20/20 Unknown Rx cephALEXin [Keflex] 500 mg PO Q12HR #20 cap 07/20/20 Unknown Rx Naproxen [Naprosyn] 500 mg PO BID #14 tab 05/04/21 Unknown Rx methylPREDNISolone [Medrol 4MG 4 mg PO DAILY #1 pack 05/04/21 Unknown Rx DOSEPAK (21 tabs)] Acetaminophen/Codeine [Tylenol 1 tab PO Q6H PRN 3 Days #12 tab 06/28/21 Unknown Rx /Codeine # 3 tab] DOXYCYCLINE Hyclate [Vibramycin 100 mg PO Q12HR 10 Days #20 capsule 06/28/21 Unknown Rx CAP] Ibuprofen [Motrin] 800 mg PO Q8HR PRN 7 Days #21 06/28/21 Unknown Rx tablet Docusate Sodium [Colace] 100 mg PO BID PRN 5 Days #10 09/11/21 Unknown Rx capsule NS oxyCODONE /ACETAMINOPHEN [Percocet 1 tab PO Q6HR PRN 4 Days #12 09/11/21 Unknown Rx 5/325] tablet NS predniSONE [Deltasone] 20 mg PO QDAY 7 Days #7 tab NS 09/11/21 Unknown Rx Allergies Allergy/AdvReac Type Severity Reaction Status Date / Time shrimp Allergy Hives Verified 07/14/16 00:21 ED Review of Systems ROS: Stated complaint: NECK PAIN Other details as noted in HPI Comment: All other systems reviewed and negative Constitutional: chills ENT: throat pain, other (right side neck pain and swelling) ED Past Medical Hx - Past Medical History Previous Medical History?: Yes Additional medical history: Obesity-hidranitis. Thyroid Disease - Surgical History Past Surgical History?: No - Social History Smoking Status: Current Every Day Smoker Substance Use Type: None - Medications Home Medications: Home Medications Medication Instructions Recorded Confirmed Last Taken Type Chlorhexidine Gluconate 1 applic TP QDAY PRN #237 ml 07/20/20 Unknown Rx [Antiseptic Skin Cleanser] Ibuprofen [Motrin 800 MG tab] 800 mg PO Q8HR PRN #30 tablet 07/20/20 Unknown Rx cephALEXin [Keflex] 500 mg PO Q12HR #20 cap 07/20/20 Unknown Rx Naproxen [Naprosyn] 500 mg PO BID #14 tab 05/04/21 Unknown Rx methylPREDNISolone [Medrol 4MG 4 mg PO DAILY #1 pack 05/04/21 Unknown Rx DOSEPAK (21 tabs)] Acetaminophen/Codeine [Tylenol 1 tab PO Q6H PRN 3 Days #12 tab 06/28/21 Unknown Rx /Codeine # 3 tab] DOXYCYCLINE Hyclate [Vibramycin 100 mg PO Q12HR 10 Days #20 capsule 06/28/21 Unknown Rx CAP] Ibuprofen [Motrin] 800 mg PO Q8HR PRN 7 Days #21 06/28/21 Unknown Rx tablet Docusate Sodium [Colace] 100 mg PO BID PRN 5 Days #10 09/11/21 Unknown Rx capsule NS oxyCODONE /ACETAMINOPHEN [Percocet 1 tab PO Q6HR PRN 4 Days #12 09/11/21 Unknown Rx 5/325] tablet NS predniSONE [Deltasone] 20 mg PO QDAY 7 Days #7 tab NS 09/11/21 Unknown Rx ED Physical Exam - General Limitations: No Limitations General appearance: alert, in no apparent distress - Head Head exam: Present: atraumatic, normal inspection - Eye Eye exam: Present: normal appearance Pupils: Present: normal accommodation - ENT ENT exam: Present: normal exam, normal orophraynx, mucous membranes moist - Neck Neck exam: Present: tenderness (right lateral neck with mild swellings ) - Respiratory Respiratory exam: Present: normal lung sounds bilaterally. Absent: respiratory distress, accessory muscle use - Cardiovascular Cardiovascular Exam: Present: regular rate, normal rhythm, normal heart sounds - GI/Abdominal GI/Abdominal exam: Present: soft, normal bowel sounds. Absent: distended, tenderness - Extremities Exam Extremities exam: Present: normal inspection, normal capillary refill. Absent: pedal edema - Back Exam Back exam: Absent: tenderness, CVA tenderness (R), CVA tenderness (L) - Neurological Exam Neurological exam: Present: alert, oriented X3 - Psychiatric Psychiatric exam: Present: normal affect, normal mood - Skin Skin exam: Present: warm, normal color ED Course Vital Signs 09/10/21 09/11/21 09/11/21 23:29 00:05 01:11 Temperature 98.9 F Pulse Rate 84 Respiratory 18 18 18 Rate Blood Pressure 108/69 Blood Pressure [Left] O2 Sat by Pulse 100 98 Oximetry 09/11/21 09/11/21 01:41 04:55 Temperature 98.4 F Pulse Rate 98 H Respiratory 18 18 Rate Blood Pressure Blood Pressure 133/88 [Left] O2 Sat by Pulse 100 Oximetry ED Medical Decision Making - Lab Data Result diagrams: 09/11/21 00:36 09/11/21 00:36 - Medical Decision Making here with right lateral neck pain x 30 days associated with sore throat which raises concern for paratonsillar abscess-- and could also be as a result of just strep pharyngitis so we will go ahead and order CBC, CMP and thyroid profile with rapid strep test for further evaluation and will treat accordingly In the meantime we will go ahead and give Toradol 30 mg IV x1 for symptomatic relief CT soft tissue neck without any acute findings and with normal thyroid profile -- and labs reviewed to be wnl except slightly low potassium -- will discharge home with pain medication and steroid with potassium supplement and close follow up with her PCP Critical care attestation.: If time is entered above; I have spent that time in minutes in the direct care of this critically ill patient, excluding procedure time. ED Disposition Clinical Impression: Sore throat, Neck pain on right side, Viral pharyngitis Disposition: HOME / SELF CARE / HOMELESS Is pt being admited?: No Does the pt Need Aspirin: No Condition: Stable Instructions: Upper Respiratory Infection, Adult, [id number], Viral Respiratory Infection, [id number], Strep Throat, Adult, [id number], Pharyngitis, [id number] Additional Instructions: Take your pain medication and steroid as prescribed to help your pain Increase your daily fluid to help your hydration Take your potassium supplement and increase potassium CONTENT in your food Call and schedule follow-up with your primary doctor in the next 3 to 5 days for progress Please do not hesitate to call or return to emergency if your symptoms worsen Prescriptions: Docusate Sodium [Colace] 100 mg PO BID PRN 5 Days #10 capsule NS PRN Reason: Constipation predniSONE [Deltasone] 20 mg PO QDAY 7 Days #7 tab NS oxyCODONE /ACETAMINOPHEN [Percocet 5/325] 1 tab PO Q6HR PRN 4 Days #12 tablet NS PRN Reason: Pain Referrals: PJ CAGE MD [Referring] - 3-5 Days Time of Disposition: 05:58
[2021-09-11 01:13] LABS: Basophils # (Auto) 0.1 K/mm3 (0.0-0.1); Basophils % (Auto) 1.1 % (0.0-1.8); Eosinophils # (Auto) 0.1 K/mm3 (0.0-0.4); Hematocrit 30.5 % (30.3-42.9); Hemoglobin 9.8 gm/dl (10.1-14.3); Lymphocytes # (Auto) 1.9 K/mm3 (1.2-5.4); Lymphocytes % (Auto) 20.8 % (13.4-35.0); Mean Corpuscular HGB Conc 32 % (30-34); Mean Corpuscular Volume 81 fl (79-97); Monocytes # (Auto) 0.7 K/mm3 (0.0-0.8); Monocytes % (Auto) 7.1 % (0.0-7.3); Platelet Count 591 K/mm3 (140-440); Red Blood Count 3.75 M/mm3 (3.65-5.03); Red Cell Distribution Width 15.7 % (13.2-15.2)
[2021-09-11 01:20] LABS: INR 0.95 (0.87-1.13)
[2021-09-11 01:21] LABS: Partial Thromboplastin Time 34.2 Sec. (24.2-36.6)
[2021-09-11 01:31] LABS: Albumin 3.4 g/dL (3.9-5); Blood Urea Nitrogen 7 mg/dL (7-17); Hemolysis Index 0
[2021-09-11 01:42] LABS: Alanine Aminotransferase < 5 units/L (7-56); BUN/Creatinine Ratio 14
[2021-09-11 02:16] LABS: Free T4 (Free Thyroxine) 1.19 ng/dL (0.76-1.46)
--- NOTE | 2021-09-11 04:40 | Cat Scan Report ---
CT NECK WITH CONTRAST INDICATION: right sided neck pain and swelling COMPARISON: None available. TECHNIQUE: Axial, coronal and sagittal CT imaging was performed through the neck after injection of 1 00 cc Omnipaque [address] scans at this location are performed using CT dose reduction for ALARA by means of automated exposure control. FINDINGS: Skull Base: No significant abnormality. Nasopharynx, oropharynx, hypopharynx: No significant abnormality. No mass identified.. Tonsils: Tonsils appear within normal limits. Airway: Patent and without significant abnormality. Salivary glands: No significant abnormality. Thyroid:No significant abnormality. Lymphatics: No lymphadenopathy. Vasculature: No significant abnormality. Osseous Structures: No significant abnormality Additional findings: None. IMPRESSION: No significant abnormality of the neck to explain the patient's pain/swelling. Signer Name: Carlos Davis MD Signed: 09/11/2021 4:36 AM Workstation Name: [id number]
[2021-09-11 05:40] VITALS: BP 133/88
[2021-09-11] MEDS ORDERED: oxyCODONE /ACETAMINOPHEN 5-325MG TAB PO ONE (06:16)
== END 2021-09-11 06:30 | disposition home or self-care (01) ==
LOC: ED 23:28
DX: J02.9 Acute pharyngitis, unspecified (principal); M54.2 Cervicalgia; J02.8 Acute pharyngitis due to other specified organisms; B97.89 Other viral agents as the cause of diseases classified elsewhere; F17.200 Nicotine dependence, unspecified, uncomplicated; Z91.013 Allergy to seafood; Z79.899 Other long term (current) drug therapy
CPT/HCPCS: 36415; 70491; 80053; 84439; 84443; 84703; 85025; 85610; 85730; 87116; 87430; 96374; 96375; 99284; J1885; J2405; Q9967